=== PATIENT | female | born 1995 | race Hispanic/Latino ===

== ENCOUNTER 2019-04-10 20:12 | Emergency (ER) | payer OTHER ==
--- OUTSIDE RECORDS SUMMARY | 2019-04-10 20:15 | XMS REPORT | Summary of Care ---
:1995 Author Organization [facility] - [facility] Address [address] [place] [address] Care Team Providers Name Role Phone Pcp, Patient Does Not Have A Primary Care Provider Reason for Referral Radiology Services (STAT) Status Reason Specialty Diagnoses / Referred By Referred To Procedures Contact Contact New Request Diagnostic Diagnoses Abdominal cramping affecting Silvia, K Radiology Procedures US FIRST TRIMESTER LESS THAN 14 WEEKS WITH TRANSVAGINAL Merari, PAC [address] [facility] [address] [place] [address] Radiology Services (STAT) Status Reason Specialty Diagnoses / Referred By Referred To Procedures Contact Contact New Request Diagnostic Diagnoses Abdominal cramping affecting Silvia, K Radiology Procedures US FIRST TRIMESTER LESS THAN 14 WEEKS WITH TRANSVAGINAL Merari, PAC [address] [facility] [address] [place] [address] Reason for Visit Reason Comments 7 weeks CRAMPING Auth/Cert Status Reason Specialty Diagnoses / Referred By Referred To Procedures Contact Contact Emergency [facility] [address] [place] [address] [place] [address] Encounter Details Date Type Department Care Team Description 02/10/2019 Emergency [facility]-Emergency Silvia, K Merari, Abdominal cramping Department PAC affecting [address] [place] [address] [address] (Primary Dx) [place] [address] [place] [address] [place] [phone] Allergies No Known Allergiesdocumented as of this encounter (statuses as of 02/10/2019) Medications Medication Sig Dispensed Refills Start Date End Date Status acetaminophen-codeine Take 1 tablet by 20 tablet 0 09/10/2016 Active (TYLENOL-CODEINE #3) mouth every 6 300-30 mg tablet (six) hours as needed for Pain (scale 4-6). acetaminophen-codeine 1/2 - 1 tab Every 15 tablet 0 08/15/2017 Active 300-30 mg 4hrs as needed tabletIndications: for pain or cough Cough requiring narcotic predniSONE 2.5 mg Take 2.5 mg by 0 Active tablet mouth daily. brompheniramine/phenyl Take by mouth. 0 Active ephrine (BROMFED ORAL) oseltamivir phosphate Take by mouth. 0 Active (TAMIFLU ORAL) ibuprofen 600 mg Take 1 tablet by 30 tablet 0 09/01/2018 Active tabletIndications: mouth every 6 Influenza (six) hours as needed for Pain (scale 4-6). benzonatate 100 mg Take 1 capsule by 20 capsule 0 09/01/2018 Active capsuleIndications: mouth 3 (three) Influenza times daily as needed for Cough. ondansetron (ZOFRAN Take 1 tablet by 10 tablet 0 09/01/2018 Active ODT) 4 mg mouth every 8 disintegrating (eight) hours as tabletIndications: needed for Nausea Influenza and Vomiting (N/V). documented as of this encounter (statuses as of 02/10/2019) Active Problems No known active problemsdocumented as of this encounter (statuses as of 2018) Social History Tobacco Use Types Packs/Day Years Used Date Never Smoker Sex Assigned at Date Recorded Not on file Job Start Date Occupation Industry Not on file Not on file Not on file Travel History Travel Start Travel End No recent travel history available. documented as of this encounter Last Filed Vital Signs Vital Sign Reading Time Taken Comments Blood Pressure 108/83 02/10/2019 9:00 PM CDT Pulse 82 02/10/2019 11:00 PM CDT Temperature 37.6 C (99.6 F) 02/10/2019 8:14 PM CDT Respiratory Rate 18 02/10/2019 9:00 PM CDT Oxygen Saturation 99% 02/10/2019 11:00 PM CDT Inhaled Oxygen Concentration - - Weight 88.5 kg (195 lb) 02/10/2019 8:14 PM CDT Height - - Body Mass Index 39.39 09/01/2018 8:14 PM [employer] documented in this encounter Discharge Instructions AttachmentsThe following attachments cannot be sent through Care Everywhere.,Adapting to: First Trimester (French)documented in this encounter Plan of Treatment Health Maintenance Due Date Last Done Comments MENINGOCOCCAL B VACCINES (1 of 2 - 2006 Risk Bexsero 2-dose series) VARICELLA VACCINES (1 of 2 - 13+ 2009 2-dose series) HPV VACCINES (1 - Female 3-dose 11/25/2011 series) CHLAMYDIA SCREENING 2012 DTaP,Tdap,and Td Vaccines (1 - 11/25/2015 Tdap) PAP SMEAR 2017 INFLUENZA VACCINE 03/20/2019 MENINGOCOCCAL VACCINE Aged Out No longer eligible based on patient's age to complete this topic PNEUMOCOCCAL 0-64 YEARS COMBINED Aged Out No longer eligible based on SERIES patient's age to complete this topic documented as of this encounter Procedures Procedure Name Priority Date/Time Associated Comments Diagnosis ABORH CONFIRMATION Routine 02/10/2019 9:50 Results for this PM CDT procedure are in the results section. US FIRST STAT 02/10/2019 9:28 Abdominal cramping Results for this TRIMESTER LESS THAN PM CDT affecting procedure are in 14 WEEKS WITH the results TRANSVAGINAL section. CBC WITH DIFFERENTIAL STAT 02/10/2019 8:45 Abdominal cramping Results for this PM CDT affecting procedure are in the results section. TYPE AND SCREEN STAT 02/10/2019 8:45 Abdominal cramping Results for this PM CDT affecting procedure are in the results section. CBC WITH DIFF Routine 02/10/2019 8:45 Abdominal cramping Results for this PM CDT affecting procedure are in the results section. TOTAL BETA HCG ASSAY STAT 02/10/2019 8:45 Abdominal cramping Results for this PM CDT affecting procedure are in the results section. COMP. METABOLIC PANEL STAT 02/10/2019 8:45 Abdominal cramping Results for this (19438) PM CDT affecting procedure are in the results section. POCT TEST CECE 02/10/2019 8:28 Abdominal cramping Results for this PM CDT affecting procedure are in the results section. URINALYSIS STAT 02/10/2019 8:26 Abdominal cramping Results for this PM CDT affecting procedure are in the results section. NOTICE OF PRIVACY Routine 02/10/2019 8:01 PRACTICES PM CDT documented in this encounter Results ABORH CONFIRMATION (02/10/2019 9:50 PM CDT) ABO & RH A Positive LAB Comment: Performed at [facility] Laboratory Services - ADC Blood Bank [address] [place] [address] Toll Free: [phone] CLIA No. [id number] Specimen Performing Organization Address City/State/Zipcode Phone Number BLD LAB US FIRST TRIMESTER LESS THAN 14 WEEKS WITH TRANSVAGINAL (02/10/2019 9 :28 PM CDT) Specimen Impressions Performed At PACS/VR/DOSE Live intrauterine corresponding to a gestational age of 6 weeks and 0 days. Keven Norman MD., have reviewed this study and agree with the above report. Narrative Performed At TRANSABDOMINAL AND TRANSVAGINAL PELVIC ULTRASOUND: PACS/VR/DOSE CLINICAL HISTORY: Beta HCG : None available at the time of dictation COMPARISON:None. FINDINGS: Transabdominal and transvaginal pelvic ultrasounds were performed. The uterus is normal in size and echotexture and contains a normal gestational sac.A live intrauterine was demonstrated with a crown rump length of 2.3 mm corresponding to a gestational age of 6 weeks and 0 days.Doppler studies demonstrated evidence of heart tones at a rate of 120 bpm.The yolk sac is present measuring 2.4 cm. No significant free fluid is present in the rectouterine pouch. The bilateral ovaries are normal with the right ovary measuring 9.1 cc and the left ovary measuring 2.8 cc. Procedure Note [facility], Radiant Results Inft User - 02/10/2019 9:40 PM CDT TRANSABDOMINAL AND TRANSVAGINAL PELVIC ULTRASOUND: CLINICAL HISTORY: Beta HCG : None available at the time of dictation COMPARISON: None. FINDINGS: Transabdominal and transvaginal pelvic ultrasounds were performed. The uterus is normal in size and echotexture and contains a normal gestational sac. A live intrauterine was demonstrated with a crown rump length of 2.3 mm corresponding to a gestational age of 6 weeks and 0 days. Doppler studies demonstrated evidence of heart tones at a rate of 120 bpm. The yolk sac is present measuring 2.4 cm. No significant free fluid is present in the rectouterine pouch. The bilateral ovaries are normal with the right ovary measuring 9.1 cc and the left ovary measuring 2.8 cc. IMPRESSION Live intrauterine corresponding to a gestational age of 6 weeks and 0 days. I, Joseluis Cano MD., have reviewed this study and agree with the above report. Performing Organization Address City/State/Zipcode Phone Number PACS/VR/DOSE CBC WITH DIFFERENTIAL (02/10/2019 8:45 PM CDT) WBC 8.25 4.30 - 11.10 [facility] 10*3/L [facility] RBC 4.68 3.93 - 5.25 [facility] 10*6/L HOSPITAL LAB[facility]ORY HGB 13.3 11.6 - 15.0 g/dL [facility] HCT 41.0 35.7 - 45.2 % [facility] MCV 87.6 80.6 - 95.5 fL [facility] MCH 28.4 25.9 - 32.8 pg [facility] MCHC 32.4 31.6 - 35.1 g/dL [facility] RDW-SD 40.1 39.0 - 49.9 fL [facility] RDW-CV 12.6 12.0 - 15.5 % [facility] PLT 354 166 - 358 [facility] 10*3/L [facility] MPV 8.8 (L) 9.5 - 12.9 fL [facility] NRBC/100 WBC 0.0 0.0 - 10.0 /100 [facility] WBCs [facility] NRBC x10^3 <0.01 10*3/L [facility] GRAN MAT (NEUT) % 60.7 % [facility] IMM GRAN % 0.40 % [facility] LYMPH % 29.7 % [facility] MONO % 6.7 % [facility] EOS % 1.9 % [facility] BASO % 0.6 % [facility] GRAN MAT x10^3(ANC) 5.01 1.88 - 7.09 [facility] 10*3/uL HOSPITAL LAB[facility]ATORY IMM GRAN x10^3 0.03 0.00 - 0.06 [facility] 10*3/uL HOSPITAL [facility] LYMPH x10^3 2.45 1.32 - 3.29 [facility] 10*3/uL HOSPITAL [facility] MONO x10^3 0.55 0.33 - 0.92 [facility] 10*3/uL [facility] EOS x10^3 0.16 0.03 - 0.39 [facility] 10*3/uL HOSPITAL [facility] BASO x10^3 0.05 0.01 - 0.07 [facility] 10*3/uL HOSPITAL LABORATORY Specimen Blood - VENOUS Performing Organization Address City/[facility] Phone Number [facility] CLIA: [id number], [address] [place] [address] Type and Screen - ONCE STAT (02/10/2019 8:45 PM CDT) ABO & RH A Positive LAB Comment: Performed at [facility] Laboratory [facility] - [facility] Blood Bank [address] [place], [place] [address] Toll Free: [phone] CLIA No. [id number] IAT Negative LAB Comment: Performed at [facility] Laboratory [facility] Blood Bank [address] [place], [place] [address] Toll Free: [phone] CLIA No. [id number] Specimen Blood - VENOUS Performing Organization Address City/[facility] Hospital[facility] Phone Number BLD LAB TOTAL BETA HCG ASSAY (02/10/2019 8:45 PM CDT) Pathologist [facility] BETA HCG 21,325.00 Non- female [facility] and male patients: HOSPITAL LABORATORY <5 mIU/mL Specimen Blood - VENOUS Narrative Performed At Gestational AgeRange [facility] (mIU/mL) 1-10Weeks [id number] 11-15 [id number] 16-22 [id number] 1954 23-40 [id number] 1566 Biotin has been reported to cause a negative bias, interpret results relative to patient's use of biotin. Performing Organization Address City/[facility]/Zipcode Phone Number [facility] CLIA: [id number], [address] [place] [address] COMP. METABOLIC PANEL (74823) (02/10/2019 8:45 PM CDT) NA 141 135 - 145 [facility] mmol/L [facility] K 3.4 (L) 3.5 - 5.0 [facility] mmol/L [facility] CL 105 98 - 108 mmol/L [facility] CO2 TOTAL 24 23 - 31 mmol/L [facility] AGAP 12 2 - 16 [facility] BUN 9 7 - 23 mg/dL [facility] GLUCOSE 142 (H) 70 - 110 mg/dL [facility] CREATININE 0.49 (L) 0.50 - 1.04 [facility] mg/dL [facility] TOTAL BILI 0.2 0.1 - 1.1 mg/dL [facility] CALCIUM 8.9 8.6 - 10.6 [facility] mg/dL [facility] T PROTEIN 7.6 6.3 - 8.2 g/dL [facility] ALBUMIN 4.3 3.5 - 5.0 g/dL [facility] ALK PHOS 81 34 - 122 U/L [facility] ALT(SGPT) 16 9 - 51 U/L [facility] AST(SGOT) 23 13 - 40 U/L [facility] eGFR Calculation 157.9 mL/min/1.73m2 [facility] (Non-[facility] LABORATORY English) eGFR Calculation 191.4 mL/min/1.73m2 [facility] () [facility] Specimen Blood - VENOUS Narrative Performed At Association of Glomerular Filtration Rate (GFR) [facility] and Staging of Kidney Disease* + + +- + | GFR (mL/min/1.73 m2)| With Kidney Damage|Without Kidney Damage + + +- + |>90| Stage one| Normal + + +- + |60-89|S tage two| Decreased GFR + + +- + |30-59|S tage three| Stage three + + +- + |15-29|S tage four | Stage four + + +- + |<15 (or dialysis)|Stage five | Stage five + + +- + *Each stage assumes the associated GFR level has been in effect for at least three months.Stages 1 to 5, with or without kidney disease, indicate chronic kidney disease. Notes: Determination of stages one and two (with eGFR >59mL/min/1.73 m2) requires estimation of kidney damage for at least three months as defined by structural or functional abnormalities of the kidney, manifested by either: Pathological abnormalities or Markers of kidney damage (including abnormalities in the composition of the blood or urine or abnormalities in imaging tests). Performing Organization Address [facility]code Phone Number [facility] CLIA: [id number], [address] [place] [address] POCT TEST (02/10/2019 8:28 PM CDT) POCT PREG positive On board controls acceptable present with C Line POCT PREG LOT # [id number] POCT PREG TEST DATE 07/19/2020 Specimen Urine - URINE, CLEAN CATCH URINALYSIS (02/10/2019 8:26 PM CDT) APPEARANCE Clear Clear [facility] COLOR Yellow Yellow [facility] PH 6.0 4.8 - 8.0 [facility] SP GRAVITY >=1.030 1.003 - 1.030 [facility] GLU U QUAL Negative Negative [facility] BLOOD Trace (A) Negative [facility] KETONES Negative Negative [facility] PROTEIN Negative Negative [facility] UROBILIN 0.2 mg/dL 0-1.0 mg/dL [facility] BILIRUBIN Negative Negative [facility] NITRITE Negative Negative [facility] LEUK JONO Negative Negative [facility] RBC/HPF 1 0 - 3 HPF [facility] WBC/HPF 0 0 - 5 HPF [facility] BACTERIA Negative Negative [facility] MUCOUS Slight (A) Negative LPF [facility] AMORPHOUS 1+ HPF [facility] SQ EPITH 1 HPF [facility] Specimen Urine - URINE, CLEAN CATCH Performing Organization Address [facility]/Zipcode Phone Number [facility] CLIA: [id number], [address] [place] [address] documented in this encounter Visit Diagnoses Diagnosis Abdominal cramping affecting - Primary documented in this encounter Administered Medications Medication Order MAR Action Action Date Dose Rate Site NaCl 0.9% (NS) bolus New Bag 02/10/2019 10:41 PM CDT 1,000 mL 999 mL/hr infusion 1,000 mL at 999 mL/hr, 1,000 mL, IV Infusion, ONCE, 1 dose, Susan 02/10/19 at 2145, STAT documented in this encounter Insurance Payer Benefit Plan / Subscriber ID Effective Dates Phone Address Type Group [employer] MEDICAID OF xxxxxxxxx 2019-Present [phone] [address] Medicaid [place] [id number] [place] [phone] documented as of this encounter"
--- OUTSIDE RECORDS SUMMARY | 2019-04-10 20:15 | XMS REPORT | Summary of Care ---
:1995 Author Organization [facility] - Health Address [address] [place] [address] Care Team Providers Name Role Phone Panda Gore MD Primary Care Provider Unavailable Encounter Details Date Type Department Care Team Description 02/10/2019 Orders Only [facility] Doctor Unassigned, No [address] [facility] [place] [address] [address] [place] [address] Allergies No Known Allergiesdocumented as of this [...] of this encounter Last Filed Vital Signs Not on filedocumented in this encounter Plan of Treatment Health [...] encounter Procedures Procedure Name Priority Date/Time Associated Diagnosis Comments CONSENT/REFUSAL FOR Routine 02/10/2019 8:00 PM CDT DIAGNOSIS AND TREATMENT documented in this encounter Results Not on filedocumented in this encounter Insurance Payer Benefit Plan / Subscriber ID Effective Dates Phone Address Type Group CONTINUUM GENERIC CONTINUUM GENERIC [id number] 2016-Presen Agency t [employer] ALLIED BENEFIT [id number] 2016-Presen PPO t CONTINUUM GENERIC CONTINUUM GENERIC [id number] Effective for Agency all dates documented as of this encounter
--- OUTSIDE RECORDS SUMMARY | 2019-04-10 20:15 | XMS REPORT ---
:1995 [facility] Address [address] [place] [address] Dr. Peres [address] [place] [address] Care Team Providers Name Role Phone Unavailable Unavailable Unavailable Problems This patient has no known problems. Allergies, Adverse Reactions, Alerts This patient has no known allergies or adverse reactions. Medications This patient has no known medications.
--- OUTSIDE RECORDS SUMMARY | 2019-04-10 20:16 | XMS REPORT | Summary of Care ---
:1995 Author Organization [facility] - [address] [address] Care Team Providers Name Role Phone Andreea Red Primary Care Provider Reason for Visit Reason Comments Forms Encounter Details Date Type Department Care Team Description 03/15/2019 Telephone [facility] Women's Sri Britt MD Forms Healthcare- [address], [place] [address] [address] [place] [phone] [phone] Allergies No Known Allergiesdocumented as of this encounter (statuses as of 03/15/2019) Medications Medication Sig Dispensed Refills Start Date End Date Status Take by mouth. 0 Active vits62/FA/om3/dha/epa ( GUMMY ORAL) documented as of this encounter (statuses as of 03/15/2019) Active Problems Problem Noted Date Obesity, Class III, BMI 40-49.9 (morbid obesity) 02/22/2019 Estimated Date of Delivery Comments Yes 10/06/2019 Based on last menstrual period of 12/30/2018 documented as of this encounter (statuses as of 03/15/2019) Social History Tobacco Use Types Packs/Day Years Used Date Never Smoker Smokeless Tobacco: Never Used Alcohol Use Drinks/Week oz/Week Comments Never Alcohol Habits Answer Date Recorded How often do you have a drink containing alcohol? Never 02/22/2019 How many drinks containing alcohol do you have on a typical Not asked day when you are drinking? How often do you have six or more drinks on one occasion? Not asked Estimated Date of Delivery Comments Yes 10/06/2019 Based on last menstrual period of 12/30/2018 Sex Assigned at Date Recorded Not on file Job Start Date Occupation Industry Not on file Not on file Not on file Travel History Travel Start Travel End No recent travel history available. documented as of this encounter Last Filed Vital Signs Not on filedocumented in this encounter Plan of Treatment Date Type Specialty Care Team Description 03/22/2019 Routine Obstetrics & Yarbrough, Danielle Dixon MD Visit Gynecology [address] [place] [address] [address] [place], [place] [phone] Health Maintenance Due Date Last Done Comments MENINGOCOCCAL B VACCINES (1 of 2 - 2006 Risk Bexsero 2-dose series) HPV VACCINES (1 - Female 3-dose 11/25/2011 series) DTaP,Tdap,and Td Vaccines (1 - 11/25/2015 Tdap) INFLUENZA VACCINE (#1) 2019 CHLAMYDIA SCREENING 02/23/2020 02/22/2019 PAP SMEAR 02/22/2022 02/22/2019 MENINGOCOCCAL VACCINE Aged Out No longer eligible based on patient's age to complete this topic PNEUMOCOCCAL 0-64 YEARS COMBINED Aged Out No longer eligible based on SERIES patient's age to complete this topic documented as of this encounter Results Not on filedocumented in this encounter Insurance Payer Benefit Plan / Subscriber ID Effective Phone Address Type Group Dates CONTINUUM CONTINUUM [id number] 2016-Pres Agency GENERIC GENERIC ent [employer] xxxxxxxxx 2019-[place]ga [place] Medicaid HEALTH CHOICE - HEALTH CHOICE nt [id number] MANAGED MEDICAID [place], [place] MEDICA[place] [id number] documented as of this encounter
--- OUTSIDE RECORDS SUMMARY | 2019-04-10 20:16 | XMS REPORT | Summary of Care ---
:1995 Author Organization [facility] Address [address] [place] [address] Care Team Providers Name Role Phone Pcp, Patient Does Not Have A Primary Care Provider Encounter Details Date Type Department Care Team Description 02/22/2019 Orders Only [facility] Doctor Unassigned, No [address] [facility] [place] [address] [address] [place] [address] Allergies No Known Allergiesdocumented as of this encounter (statuses as of 02/22/2019) Medications Medication Sig Dispensed Refills Start Date [...] as of this encounter (statuses as of 02/22/2019) Active Problems No known active problemsdocumented as [...] Procedure Name Priority Date/Time Associated Diagnosis Comments ASSIGNMENT OF BENEFITS Routine 02/22/2019 3:40 PM CDT documented in this encounter Results Not on filedocumented in this encounter Insurance Payer Benefit Plan / Subscriber ID Effective Phone Address Type Group Dates CONTINUUM CONTINUUM [id number] 2016-Pres Agency GENERIC GENERIC ent [facility] MEDICAID OF xxxxxxxxx 2019-Prese [phone] Medicaid [place] nt [id number] [place] [address] documented as of this encounter
--- OUTSIDE RECORDS SUMMARY | 2019-04-10 20:16 | XMS REPORT | Summary of Care ---
:1995 Author Organization [facility] Address [address] [place] [id number] Care Team Providers Name Role Phone Andreea Red Primary Care Provider Reason for Visit Reason Comments LAB WORK Auth/Cert Status Reason Specialty Diagnoses / Referred By Referred To Procedures Contact Contact Clinical Medical Diagnoses regnancy examination or test, positive result [facility] Lab Laboratory Procedures 1 hour glucose [address] [place] [address] Encounter Details Date Type Department Care Team Description 03/03/2019 Side Gluer Visit [facility] Yarbrough, Danielle Dixon MD [address] [place] [address] Phlebotomy 1, [facility] Lab examination or test, [facility] positive result [address] [place] [address] Allergies No Known Allergiesdocumented as of this encounter (statuses as of 03/03/2019) Medications Medication Sig Dispensed Refills Start Date End Date Status Take by mouth. 0 Active vits62/FA/om3/dha/epa ( GUMMY ORAL) documented as of this encounter (statuses as of 03/03/2019) Active Problems Problem Noted Date Obesity, Class III, BMI 40-49.9 (morbid obesity) 02/22/2019 Estimated Date of Delivery Comments Yes 10/06/2019 Based on last menstrual period of 12/30/2018 documented as of this encounter (statuses as of 03/03/2019) Social History Tobacco Use Types Packs/Day Years [...] & Yarbrough, Danielle Dixon MD Visit Gynecology [address] [place] [address] [place] [address] [phone] Name Type Priority Associated Diagnoses Date/Time GLUCOSE 1 HOUR POST LAB Routine examination or 03/03/2019 4:39 PM PRANDIAL test, positive result CDT ADC, CLC OR LCC ONLY - LAB Routine examination or 03/03/2019 4: 39 PM HIV TYPE 1 AND 2 ANTIBODY test, positive result CDT SCREEN WITH P24 ADC OR JADEN ONLY - RPR LAB Routine examination or 03/03/2019 4:39 PM test, positive result CDT CBC WITH DIFF LAB Routine examination or 03/03/2019 4:39 PM test, positive result CDT HEPATITIS B SURFACE LAB Routine examination or 03/03/2019 4:39 PM ANTIGEN test, positive result CDT HCV ANTIBODY LAB Routine examination or 03/03/2019 4:39 PM test, positive result CDT RUBELLA SCREEN IGG LAB Routine examination or 03/03/2019 4:39 PM test, positive result CDT URINE CULTURE LAB Routine examination or 03/03/2019 4:39 PM test, positive result CDT VZV ANTIBODY SCREEN LAB Routine examination or 03/03/2019 4:39 PM test, positive result CDT CBC WITH DIFFERENTIAL LAB Routine examination or 03/03/2019 4: 39 PM test, positive result CDT Health Maintenance Due Date Last Done Comments [...] Results Not on filedocumented in this encounter Visit Diagnoses Diagnosis examination or test, positive result documented in this encounter Insurance Payer Benefit Plan / Subscriber ID Effective Dates Phone Address Type Group TMHP MEDICAID OF xxxxxxxxx 2019-Present [phone] [address] [place] [id number] [place] [phone] documented as of this encounter
--- OUTSIDE RECORDS SUMMARY | 2019-04-10 20:16 | XMS REPORT | Summary of Care ---
:1995 Author Organization [facility] - [address] [address] Care Team Providers Name Role Phone Andreea Red Primary Care Provider Encounter Details Date Type Department Care Team Description 03/15/2019 Letter (Out) [facility] Women's Sri Britt MD [facility]- [address], [place] [address] [address] [place] [id number] [phone] Allergies No Known Allergiesdocumented as of this [...] & Yarbrough, Danielle Dixon MD Visit Gynecology [address] [place] [address] [place] [address] Health Maintenance Due Date Last Done Comments [...] Phone Address Type Group Dates CONTINUUM CONTINUUM [id number] 2016-Pres Agency GENERIC GENERIC ent COMMUNITY COMMUNITY xxxxxxxxx 2019-Nga [address] Medicaid HEALTH CHOICE - HEALTH CHOICE [id number] MANAGED MEDICAID [place], [place] MEDICAID [id number] documented as of this encounter
--- OUTSIDE RECORDS SUMMARY | 2019-04-10 20:16 | XMS REPORT | Summary of Care ---
:1995 Author Organization [facility] Address [address] [place] [address] Care Team Providers Name Role Phone Andreea Red Primary Care Provider Encounter Details Date Type Department Care Team Description 03/11/2019 Letter (Out) [facility] Women's Yarbrough, Danielle Dixon MD [facility]- [address] [facility], [address] [place] [address] [place] [id number] Allergies No Known Allergiesdocumented as of this encounter (statuses as of 03/11/2019) Medications Medication Sig Dispensed Refills Start Date End Date Status Take by mouth. 0 Active vits62/FA/om3/dha/epa ( GUMMY ORAL) documented as of this encounter (statuses as of 03/11/2019) Active Problems Problem Noted Date Obesity, Class III, BMI 40-49.9 (morbid obesity) 02/22/2019 Estimated Date of Delivery Comments Yes 10/06/2019 Based on last menstrual period of 12/30/2018 documented as of this encounter (statuses as of 03/11/2019) Social History Tobacco Use Types Packs/Day Years [...] & Yarbrough, Danielle Dixon MD Visit Gynecology [address] [place] [address] [place] [address] Health Maintenance Due Date Last [...] Phone Address Type Group Dates CONTINUUM CONTINUUM [id number] 2016-Pres Agency GENERIC GENERIC ent COMMUNITY COMMUNITY xxxxxxxxx 2019-Nga [address] [place] Medicaid HEALTH CHOICE - HEALTH CHOICE [id number] MANAGED MEDICAID [place], [place] [phone] documented as of this encounter
--- OUTSIDE RECORDS SUMMARY | 2019-04-10 20:16 | XMS REPORT | Summary of Care ---
:1995 Author Organization [facility] Address [address] [place] [address] Care Team Providers Name Role Phone Pcp, Patient Does Not Have A Primary Care Provider Reason for Visit Reason Comments POSITIVE HOME TEST MISSED MENSES Encounter Details Date Type Department Care Team Description 02/22/2019 Initial [facility] Women's Yarbrough, Danielle Dixon MD High-risk in first trimester (Primary Dx); Visit Healthcare- [address] [place] [address] examination or test, positive result; Zoë BORGES Vaginal discharge; [address] [place] [address], [address] Pelvic cramping in antepartum period; [address] [place], [place] 7 weeks gestation of ; [place] [address] Obesity, Class III, BMI 40-49.9 (morbid obesity) [id number] Allergies No Known Allergiesdocumented as of this encounter (statuses as of 02/22/2019) Medications Medication Sig Dispensed Refills Start Date End Date Status Take by 0 Active vits62/FA/om3/dha/ep mouth. a ( GUMMY ORAL) acetaminophen-codein Take 1 tablet 20 tablet 0 09/10/2016 Discontinued e (TYLENOL-CODEINE by mouth every 9 #3) 300-30 mg tablet 6 (six) hours as needed for Pain (scale 4-6). acetaminophen-codein 1/2 - 1 tab 15 tablet 0 08/15/2017 Discontinued e 300-30 mg Every 4hrs as 9 tabletIndications: needed for Cough pain or cough requiring narcotic predniSONE 2.5 mg Take 2.5 mg by 0 Discontinued tablet mouth daily. 9 brompheniramine/phen Take by 0 Discontinued ylephrine (BROMFED mouth. 9 ORAL) oseltamivir Take by 0 Discontinued phosphate (TAMIFLU mouth. 9 ORAL) ibuprofen 600 mg Take 1 tablet 30 tablet 0 09/01/2018 Discontinued tabletIndications: by mouth every 9 Influenza 6 (six) hours as needed for Pain (scale 4-6). benzonatate 100 mg Take 1 capsule 20 capsule 0 09/01/2018 Discontinued capsuleIndications: by mouth 3 9 Influenza (three) times daily as needed for Cough. ondansetron (ZOFRAN Take 1 tablet 10 tablet 0 09/01/2018 Discontinued ODT) 4 mg by mouth every 9 disintegrating 8 (eight) tabletIndications: hours as Influenza needed for Nausea and Vomiting (N/V). documented as of this encounter (statuses as of 02/22/2019) Active Problems Problem Noted Date Obesity, Class III, BMI 40-49.9 (morbid obesity) 02/22/2019 Estimated Date of Delivery Comments Yes 10/06/2019 Based on last menstrual period of 12/30/2018 documented as of this encounter (statuses as of 02/22/2019) Social History Tobacco Use Types Packs/Day Years [...] Sign Reading Time Taken Comments Blood Pressure 117/80 02/22/2019 4:26 PM CDT Pulse 86 02/22/2019 4:26 PM CDT Temperature 37 C (98.6 F) 02/22/2019 4:26 PM CDT Respiratory Rate 20 02/22/2019 4:26 PM CDT Oxygen Saturation - - Inhaled Oxygen Concentration - - Weight 90.7 kg (200 lb) 02/22/2019 4:26 PM CDT Height 149.9 cm (4' 11") 02/22/2019 4:26 PM CDT Body Mass Index 40.4 02/22/2019 4:26 PM CDT documented in this encounter Progress Notes Danielle Yarbrough MD - 02/22/2019 3:30 PM CDT Chief complaint: Chief Complaint Patient presents with POSITIVE HOME TEST MISSED MENSES HPI Trixie Swann is a 23 year old female @ 7w5d by Patient's last menstrual period was 12/30/2018. here for NOB visit. Unplanned but is happy. Taking PNV. + midline intermittent pelvic cramping. Denies vaginal bleeding or spotting. Histories OB History Para Term AB Living 1 SAB TAB Ectopic Multiple Live Births # Outcome Date GA Lbr Josh/2nd Weight Sex Delivery Anes PTL Lv 1 Current Past Medical History: Diagnosis Date Acid reflux Anemia Anxiety Asthma Bacterial vaginosis History of Depression GERD (gastroesophageal reflux disease) Family History Problem Relation Age of Onset Diabetes Mother Ovarian Cancer Other 33 Arthritis NoFHx Asthma NoFHx defects NoFHx Breast Cancer NoFHx Colon Cancer NoFHx Uterine Cancer NoFHx Cancer NoFHx Depression NoFHx Genetic NoFHx Heart NoFHx High cholesterol NoFHx Hypertension NoFHx Mental retardation NoFHx Neurological NoFHx Osteoporosis NoFHx Other - see comments NoFHx Family Status Relation Name Status Mo Alive Fa Alive OTHER 1st Cousin NoFHx (Not Specified) Past Surgical History: Procedure Laterality Date MYRINGOTOMY at age 4 Social History Socioeconomic History Marital status: Single Spouse name: Not on file Number of children: Not on file Years of education: Not on file Highest education level: Not on file 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 Social Needs Financial resource strain: Not on file Food insecurity: Worry: Not on file Inability: Not on file Transportation needs: Medical: Not on file Non-medical: Not on file Tobacco Use Smoking status: Never Smoker Smokeless tobacco: Never Used Substance and Sexual Activity Alcohol use: Never Frequency: Never Drug use: Never Sexual activity: Yes Partners: Male control/protection: None Lifestyle Physical activity: Days per week: Not on file Minutes per session: Not on file Stress: Not on file Relationships Social connections: Talks on phone: Not on file Gets together: Not on file Attends church service: Not on file Active member of club or organization: Not on file Attends meetings of clubs or organizations: Not on file Relationship status: Not on file Intimate partner violence: Fear of current or ex partner: Not on file Emotionally abused: Not on file Physically abused: Not on file Forced sexual activity: Not on file Other Topics Concern Not on file Social History Narrative Denies domestic or physical violence within the home Catholic Preference: Jainism No Cats in home Social History Substance and Sexual Activity Sexual Activity Yes Partners: Male control/protection: None Genetic Screen Autism / Mental Retardation: (!) Yes(MOB has three maternal aunts that all have children with MR) Was person tested for Fragile X?: No Wilberto Disease: No Congenital Heart Defect: No Cystic Fibrosis: No Down Syndrome: No Familial Dysautonomia: No Hemophilia or other Blood Disorders: No [place] Chorea: No Maternal Metabolic Disorder--specify (eg. Type 1 Diabetes, PKU): No Muscular Dystrophy: No Neural Tube Defect: No Recurrent Loss or a Stillbirth: No Sickle Cell Disease or Trait: No Michael Sachs: No Teratological Substances (specify type & strength/dose) since LMP: No Thalassemia: No Other Inherited Genetic or Chromosomal Disorder (specify): No Labs No new labs Radiology No new radiology. Allergies Trixie has No Known Allergies. Medications Trixie has a current medication list which includes the following prescription(s ): vits62/fa/om3/dha/epa. Review of Systems Constitutional: Negative for chills, fatigue and fever. HENT: Negative for congestion, rhinorrhea, sneezing and sore throat. Respiratory: Negative for cough, chest tightness, shortness of breath and wheezing. Breasts: Negative for discharge, mass, pain and unequal size. Cardiovascular: Negative for chest pain and palpitations. Gastrointestinal: Negative for abdominal distention, abdominal pain, anal bleeding, blood in stool, constipation, diarrhea, nausea and vomiting. Genitourinary: Negative for bladder incontinence, dysuria, urgency, frequency, vaginal bleeding, vaginal discharge and dyspareunia. Musculoskeletal: Negative for gait problem. Skin: Negative for rash. Neurological: Negative for syncope, light-headedness and headaches. Psychiatric/Behavioral: Positive for dysphoric mood. Negative for self-injury and suicidal ideas. The patient is nervous/anxious. Followed by psych, stable Hematological: Negative for cold intolerance and heat intolerance. Does not bruise/bleed easily. Endocrine: Negative for cold intolerance and heat intolerance. BP 117/80 (BP Location: Left arm, Patient Position: Sitting, BP CUFF SIZE: Adult Medium) | Pulse 86 | Temp 37 C (98.6 F) (Oral) | Resp 20 | Ht 4' 11 " (1.499 m) | Wt 200 lb (90.7 kg) | LMP 12/30/2018 | BMI 40.40 kg/m Pregravid BMI: 40.4 Physical Exam Vitals reviewed. Constitutional: She is oriented to person, place, and time. Her body habitus is obese. Neck: No mass. No thyromegaly palpated. Cardiovascular: Regular rate and rhythm. Pulmonary/Chest: Breath sounds clear to auscultation. Normal inspiratory effort. Abdominal: Abdomen is soft. No tenderness present. No hernia palpated or inspected. Neuro/Psychiatric: She has a normal mood and affect. She is oriented to person, place, and time. Skin: Skin normal. No rash present. Lymphadenopathy: No axillary adenopathy present. No inguinal adenopathy present. Breast: Right breast exhibits no mass, no nipple discharge and no tenderness. Left breast exhibits no mass, no nipple discharge and no tenderness. Breasts are symmetrical. Left nipple is flushed against the areolar; this is her baseline External genitalia: Normal external genitalia appropriate for age. Normal hair distribution. No labial lesion. Urethral meatus: Normal urethral meatus Urethra: Normal urethra. Bladder: Normal bladder Vagina:Normal vagina. Cervix: Normal cervix. No lesion. No tenderness and no discharge present. Uterus: Unable to appreciate due to body habitus Adnexa: Unable to appreciate due to body habitus Anus/perineum: Normal perineum and normal anus. Assessment/Plan See OB Summary Return to clinic in 4 weeks. Reviewed patient instructions and provided printed copy. Activity restrictions: As tolerated at 7w5d This visit did not involve counseling and coordination that comprised more than 50% of the visit time. Danielle Yarbrough MD 02/22/2019 5:23 PM documented in this encounter Plan of Treatment Date Type Specialty Care Team Description 03/22/2019 Routine Obstetrics & Danielle Yarbrough MD Visit Gynecology [address] [place] [address] [place] [address] [phone] Name Type Priority Associated Diagnoses Order Schedule GLUCOSE 1 HOUR POST LAB Routine examination or Expected: 2018, PRANDIAL test, positive result Expires: 03/25/2019 ADC / LCC - DRUG SCREEN LAB Routine examination or Ordered: 02/22 TRIAGE test, positive result ADC, CLC OR LCC ONLY - LAB Routine examination or Expected: 02/22, HIV TYPE 1 AND 2 test, positive result Expires: 05/25/2019 ANTIBODY SCREEN WITH P24 ADC OR JADEN ONLY - LAB Routine examination or Expected: 2018, RPR test, positive result Expires: 05/25/2019 CBC WITH DIFF LAB Routine examination or Expected: 02/22/2019, test, positive result Expires: 05/25/2019 HEPATITIS B SURFACE LAB Routine examination or Expected: 2018, ANTIGEN test, positive result Expires: 05/25/2019 HCV ANTIBODY LAB Routine examination or Expected: 02/22/2019, test, positive result Expires: 05/25/2019 WORKUP, BLOOD LAB Routine examination or Expected: 02/22, BANK test, positive result Expires: 05/25/2019 RUBELLA SCREEN IGG LAB Routine examination or Expected: 2018, test, positive result Expires: 05/25/2019 URINE CULTURE LAB Routine examination or Expected: 02/22/2019, test, positive result Expires: 03/25/2019 VZV ANTIBODY SCREEN LAB Routine examination or Expected: 2018, test, positive result Expires: 05/25/2019 PAP Smear-Liquid Based LAB Routine examination or Ordered: 2018 test, positive result GALV ONLY - VAGINAL LAB Routine examination or Ordered: 2018 PATHOGENS BY DNA PROBE test, positive result GC & CHLAMYDIA AMPLIFIED LAB Routine examination or Ordered: 12/2018 ASSAY test, positive result Health Maintenance Due Date Last Done Comments [...] Procedure Name Priority Date/Time Associated Diagnosis Comments US OB TRANSVAGINAL Routine 02/22/2019 5:14 PM Results for this CDT examination or test, procedure are in positive result the results Pelvic cramping in section. antepartum period documented in this encounter Results US OB TRANSVAGINAL (02/22/2019 5:14 PM CDT) Specimen Narrative Performed At Limited [facility]G for location and viability due to pelvic cramping in PACS early :Single live IUP measured 7 2/7 weeks, consistent with LMP.Will date by LMP Danielle Yarbrough MD02/22/20195:15 PM Performing Organization Address City/State/Zipcode Phone Number PACS documented in this encounter Visit Diagnoses Diagnosis High-risk in first trimester - Primary examination or test, positive result Vaginal discharge Leukorrhea, not specified as infective Pelvic cramping in antepartum period Other specified complication, antepartum 7 weeks gestation of Obesity, Class III, BMI 40-49.9 (morbid obesity) Morbid obesity documented in this encounter Insurance Payer Benefit Plan / Subscriber ID Effective Dates Phone Address Type Group TMHP MEDICAID OF xxxxxxxxx 2019-Present [phone] [address] Medicaid [place] [address] [place] [address] documented as of this encounter
--- OUTSIDE RECORDS SUMMARY | 2019-04-10 20:16 | XMS REPORT | Summary of Care ---
:1995 Author Organization [facility] Address [address] [place] [address] Care Team Providers Name Role Phone Pcp, Patient Does Not Have A Primary Care Provider Reason for Visit Reason Comments POSITIVE HOME TEST MISSED MENSES Encounter Details Date Type Department Care Team Description 02/22/2019 Initial [facility] Women[facility] Yarbrough, Danielle Dixon MD High-risk in first trimester (Primary Dx); Visit Healthcare- [address] [place] [address] examination or test, positive result; Zoë BROGES Vaginal discharge; [address], [address] Pelvic cramping in antepartum period; [address] [place], [place] 7 weeks gestation of ; [place] [address] Obesity, Class III, BMI 40-49.9 (morbid obesity) [id number] Allergies No Known Allergiesdocumented as of this encounter (statuses as of 03/04/2019) Medications Medication Sig Dispensed Refills Start Date [...] as of this encounter (statuses as of 03/04/2019) Active Problems Problem Noted Date Obesity, Class III, BMI 40-49.9 (morbid obesity) 02/22/2019 Estimated Date of Delivery Comments Yes 10/06/2019 Based on last menstrual period of 12/30/2018 documented as of this encounter (statuses as of 03/04/2019) Social History Tobacco Use Types Packs/Day Years [...] file Gets together: Not on file Attends scientologist service: Not on file Active member of [...] domestic or physical violence within the home Spiritism Preference: Sikhism No Cats in home Social History Substance [...] No Hemophilia or other Blood Disorders: No [place] Chorea: No Maternal Metabolic Disorder--specify (eg. Type [...] Obstetrics & Danielle Yarbrough MD Visit Gynecology [address] [place] [address] [address] [facility] [place] [address] [phone] Health Maintenance Due Date Last Done Comments [...] Comments US OB TRANSVAGINAL Routine 02/22/2019 5:14 Results for this PM CDT examination or test, procedure are in positive result the results Pelvic cramping in section. antepartum period PAP SMEAR-LIQUID Routine 02/22/2019 5:08 Results for this BASED-CP PM CDT examination or test, procedure are in positive result the results section. ADC / LCC - DRUG Routine 02/22/2019 5:08 Results for this SCREEN TRIAGE PM CDT examination or test, procedure are in positive result the results section. GALV ONLY - VAGINAL Routine 02/22/2019 5:08 Results for this PATHOGENS BY DNA PM CDT examination or test, procedure are in PROBE positive result the results section. LAB ONLY PAP Routine 02/22/2019 5:08 Results for this SMEAR-LIQUID BASED PM CDT examination or test, procedure are in positive result the results section. GC & CHLAMYDIA Routine 02/22/2019 5:08 Results for this AMPLIFIED ASSAY PM CDT examination or test, procedure are in positive result the results section. documented in this encounter Results VZV ANTIBODY SCREEN (03/03/2019 4:39 PM CDT) VZV IgG antibody Positive Negative [facility] Specimen Blood Narrative Performed At Positive - Indicates the patient was exposed to VZV through [facility] infection or vaccination. Negative - Indicates the patient could be susceptible to VZV infection. Equivocal - A second specimen should be sent for testing. Performing Organization Address City/[facility] Phone Number [facility] CLIA: [id number], [address] [place] [address] [facility] URINE CULTURE (03/03/2019 4:39 PM CDT) Pathologist [facility] URINE CULTURE 10,000 - 100,000 [facility] CFU/mL mixed aerobic SERVICES organisms - suggests endogenous microbial contamination Specimen Urine - URINE, CLEAN CATCH Performing Organization Address [facility] Number [facility] CLIA: [id number], [address] [place] [address] [facility] RUBELLA SCREEN IGG (03/03/2019 4:39 PM CDT) Pathologist [facility] Rubella screen IgG Positive Negative [facility] Specimen Blood Narrative Performed At Positive - Indicates the patient was exposed to Rubella [facility] through infection or vaccination. Negative - Indicates the patient could be susceptible to Rubella infection. Equivocal - A second specimen should be sent. Performing Organization Address [facility] Phone Number [facility] CLIA: [id number], [address] [place] [address] [facility] HCV ANTIBODY (03/03/2019 4:39 PM CDT) Pathologist [facility] HCV Ab NEGATIVE [facility] HCV Semi-Quantitative 0.01 [facility] Specimen Blood Performing Organization Address [facility] Phone Number [facility] CLIA: [id number], [address] [place] [address] [phone] [facility] HEPATITIS B SURFACE ANTIGEN (03/03/2019 4:39 PM CDT) Pathologist [facility] HBsAg HEPATITIS B Negative [facility] SURFACE ANTIGEN SERVICES NEGATIVE HBsAg 0.05 [facility] Semi-Quantitative SERVICES Specimen Blood Performing Organization Address [facility] Phone Number [facility] CLIA: [id number], [address] [place] [address] [facility] ADC OR JADEN ONLY - RPR (03/03/2019 4:39 PM CDT) RPR (Qualitative) NON-REACTIVE Nonreactive [facility] Specimen Blood Performing Organization Address City/[facility]/Zipcode Phone Number [facility] CLIA: [id number], [address] [place] [address] LABORATORY [facility] ADC, CLC OR LCC ONLY - HIV TYPE 1 AND 2 ANTIBODY SCREEN WITH P24 (03/03/2019 4: 39 PM CDT) HIV 1/2 AG/AB NON-REACTIVE Nonreactive [facility] Specimen Blood Performing Organization Address [facility] Phone Number [facility] CLIA: [id number], [address] [place] [address] LABORATORY [facility] GLUCOSE 1 HOUR POST PRANDIAL (03/03/2019 4:39 PM CDT) GLUC 1 HR 85 (L) 120 - 170 mg/dL [facility] Specimen Blood Performing Organization Address [facility] Phone Number [facility] CLIA: [id number], [address] [place] [address] LABORATORY [facility] WORKUP, BLOOD BANK (03/03/2019 4:35 PM CDT) ABO & RH A Positive LAB Comment: Performed at [facility] Laboratory [facility] Blood Bank [address] [place] [phone] Toll Free: [phone] CLIA No. [id number] IAT Negative LAB Comment: Performed at [facility] Laboratory [facility] Blood Bank [address] [place] [phone] Toll Free: [phone] CLIA No. [id number] Specimen Blood - VENOUS Performing Organization Address City/[facility] Phone Number [facility] LAB US OB TRANSVAGINAL (02/22/2019 5:14 PM CDT) Specimen Narrative Performed At Limited USG for location and viability due to pelvic cramping in PACS early :Single live IUP measured 7 2/7 weeks, consistent with LMP.Will date by LMP Danielle Yarbrough MD02/22/20195:15 PM Performing Organization Address City/State/Zipcode Phone Number PACS LAB ONLY PAP SMEAR-LIQUID BASED (02/22/2019 5:08 PM CDT) Case Report Gynecologic Cytology Case: [id number] [facility] Authorizing Provider:Danielle Yarbrough MDCollected: 02/22/2019 1708 SERVICES [facility] Women'sReceived: 02/23/[address] [place] [address] First Screen:Theo Galvez Specimen:Liquid Based Pap Preparation, CERVIX Clinical Information First pap [facility] Specimen Adequacy Satisfactory for [facility] LAB[facility]AT[facility] Evaluation(Endocervic SERVICES al/Transformation Zone Component Absent) Interpretation Negative for [facility] Electronically intraepithelial SERVICES signed by rodriguez Galvez or malignancy Theo Galeana on 02/28/2019 at 2:06 PM LMP [facility] Educational Note Cervical cytology [facility] (Pap Test) is a SERVICES screening test primarily for squamous cancers and precursors. The test has an inherent, but low, probability of false-negative and false-positive results. Regular sampling and follow-up of unexplained clinical signs and symptoms are recommended to minimize the effect of false negative results. Your patient should be reminded to consult you immediately if she experiences any unexplained clinical signs and symptoms, regardless of any Pap Test result. Embedded Images [facility] Specimen Swab - CERVIX Performing Organization Address City/[facility]/Zipcode Phone Number [facility] CLIA: [id number], [address] [place] [address] [phone] [facility] GC & CHLAMYDIA AMPLIFIED ASSAY (02/22/2019 5:08 PM CDT) C. trachomatis CHLAMYDIA Negative [facility] Nucleic Acid TRACHOMATIS DNA (A) SERVICES N. gonorrhoeae NEGATIVE Negative [facility] Nucleic Acid SERVICES Specimen Urine - URINE, UNSPECIFIED SOURCE Performing Organization Address City/State/Zipcode Phone Number [facility] CLIA: [id number], [address] [place] [address] [facility] GALV ONLY - VAGINAL PATHOGENS BY DNA PROBE (02/22/2019 5:08 PM CDT) Trichomonas vaginalis Negative Negative [facility] Gardnerella vaginalis Negative Negative [facility] Kalyn species Negative Negative [facility] Specimen Fluid - VAGINA Performing Organization Address City/[facility]/Zipcode Phone Number [facility] CLIA: [id number], [address] [place] [address] [phone] [facility] PAP Smear-Liquid Based (02/22/2019 5:08 PM CDT) Specimen Swab - CERVIX Performing Organization Address [facility] Phone Number [facility] CLIA: [id number], [address] [place] [phone] [facility] ADC / LCC - DRUG SCREEN TRIAGE (02/22/2019 5:08 PM CDT) BENZO U Negative Negative [facility] AGNIESZKA U Negative Negative [facility] AMPHET Negative Negative [facility] THC Negative Negative [facility] METHADONE Negative Negative [facility] Meth U Negative Negative [facility] OPIATES Negative Negative [facility] Cocaine Metabolite Negative Negative [facility] PROPOXY Negative Negative [facility] Tric U Negative Negative [facility] PCP Negative Negative [facility] OXYCOD Negative Negative [facility] Specimen Urine - URINE, CLEAN CATCH Narrative Performed At Urine Drug Cutoff Ranges [facility] Benzodiazepines: 150 ng/mL Barbiturates: 200 ng/mL Amphetamine: 500 ng/mL Cannabinoids: 50ng/mL Methadone: 200 ng/mL Methamphetamine: 500 ng/mL Opiates: 100 ng/mL or 2000 ng/mL Cocaine: 150 ng/mL Propoxyphene:300 ng/mL Tricyclics:300 ng/mL Oxycodone: 100 ng/mL PCP: 25ng/mL The results are to be used only for medical (i.e., treatment) purposes. Unconfirmed screening results must not be used for non-medical purposes (e.g., employment testing, legal testing). Performing Organization Address [facility] Phone Number [facility] CLIA: [id number], [address] [place] [address] documented in this encounter [...] Type Group TMHP MEDICAID OF xxxxxxxxx 2019-Present [phone] Medicaid [place] [id number] [place] [phone] documented as of this encounter
--- OUTSIDE RECORDS SUMMARY | 2019-04-10 20:16 | XMS REPORT | Summary of Care ---
:1995 Author Organization [address] [address] Care Team Providers Name Role Phone Andreea Red Primary Care Provider Reason for Visit Reason Comments Medication Problem One time partner treatment prescription Encounter Details Date Type Department Care Team Description 03/11/2019 Nurse Triage [facility] Grisel Sullivan RN Medication Problem [address] [place] [address] (One time partner [place] [address] prescription) [id number] Allergies No Known Allergiesdocumented as of this [...] & Yarbrough, Danielle Dixon MD Visit Gynecology [address] [place] [address] [place] [address] [phone] Health Maintenance Due Date Last Done Comments [...] Phone Address Type Group Dates CONTINUUM CONTINUUM [id number] 2016-Pres Agency GENERIC GENERIC ent COMMUNITY COMMUNITY xxxxxxxxx 2019-Nga [address] Medicaid HEALTH CHOICE - HEALTH CHOICE nt [id number] MANAGED MEDICAID [place], [place] MEDICAID [id number] documented as of this encounter
--- OUTSIDE RECORDS SUMMARY | 2019-04-10 20:16 | XMS REPORT | Summary of Care ---
:1995 Author Organization [facility] Address [address] [place] [address] Care Team Providers Name Role Phone Pcp, Patient Does Not Have A Primary Care Provider Reason for Visit Reason Comments New Medication Encounter Details Date Type Department Care Team Description 02/23/2019 Case Management [facility] Women's Cathie Roberts, New Medication Healthcare- [facility] [address] [facility], [address] [place] [address] [place] [address] [place] [address] [phone] Allergies No Known Allergiesdocumented as of this encounter (statuses as of 02/23/2019) Medications Medication Sig Dispensed Refills Start Date End Date Status Take by mouth. 0 Active vits62/FA/om3/dha/epa ( GUMMY ORAL) azithromycin 500 mg Take 2 tablets 2 tablet 0 02/23/2019 02/23/2019 Active tabletIndications: by mouth once Chlamydia trachomatis now for 1 dose. infection of lower genitourinary sites documented as of this encounter (statuses as of 02/23/2019) Active Problems Problem Noted Date Obesity, Class III, BMI 40-49.9 (morbid obesity) 02/22/2019 Estimated Date of Delivery Comments Yes 10/06/2019 Based on last menstrual period of 12/30/2018 documented as of this encounter (statuses as of 02/23/2019) Social History Tobacco Use Types Packs/Day Years [...] & Yarbrough, Danielle Dixon MD Visit Gynecology [address] [place] [address] [address] [place], [place] [address] Health Maintenance Due Date Last Done Comments [...] filedocumented in this encounter Visit Diagnoses Diagnosis Chlamydia trachomatis infection of lower genitourinary sites - Primary documented in this encounter Insurance Payer Benefit Plan / Subscriber ID Effective Phone Address Type Group Dates CONTINUUM CONTINUUM [id number] 2016-Pres Agency GENERIC GENERIC ent [facility] MEDICAID OF xxxxxxxxx 2019-Nga [phone] Medicaid [place] [id number] [place] [address] documented as of this encounter
--- OUTSIDE RECORDS SUMMARY | 2019-04-10 20:17 | XMS REPORT | Summary of Care ---
:1995 Author Organization [facility] Address [address] [place] [address] Care Team Providers Name Role Phone Andreea Red Primary Care Provider Reason for Visit Reason Comments Lab Results Encounter Details Date Type Department Care Team Description 03/31/2019 Case Management [facility] Women's Yarbrough, Danielle Dixon MD Lab Results Healthcare- [address] [facility] [address] [place] [address] [place] [address] [phone] Allergies No Known Allergiesdocumented as of this encounter (statuses as of 03/31/2019) Medications Medication Sig Dispensed Refills Start Date End Date Status Take by mouth. 0 Active vits62/FA/om3/dha/epa ( GUMMY ORAL) venlafaxine XR 150 mg TK ONE C PO D 0 02/16/2019 Active 24 hr capsule metoclopramide HCl 10 1 tab every 4hr 30 tablet 0 03/26/2019 Active mg tabletIndications: as needed for Vomiting of nausea acetaminophen-codeine 1/2 - 1 tab Every 10 tablet 0 03/26/2019 Active 300-30 mg 4hrs as needed tabletIndications: for pain or cough Carotidynia requiring narcotic documented as of this encounter (statuses as of 03/31/2019) Active Problems Problem Noted Date Obesity, Class III, BMI 40-49.9 (morbid obesity) 02/22/2019 Estimated Date of Delivery Comments Yes 10/06/2019 Based on last menstrual period of 12/30/2018 documented as of this encounter (statuses as of 03/31/2019) Social History Tobacco Use Types Packs/Day Years [...] Treatment Date Type Specialty Care Team Description 04/21/2019 Routine Obstetrics & Yarbrough, Danielle Dixon MD Visit Gynecology [address] [place] [address] [place] [address] Health Maintenance Due Date Last [...] Phone Address Type Group Dates CONTINUUM CONTINUUM [id number] 2016-Pres Agency GENERIC GENERIC ent COMMUNITY COMMUNITY xxxxxxxxx 2019-Prese [address] Medicaid HEALTH CHOICE - HEALTH CHOICE nt [id number] MANAGED MEDICAID [place], [place] MEDICAID [phone] documented as of this encounter
--- OUTSIDE RECORDS SUMMARY | 2019-04-10 20:17 | XMS REPORT | Summary of Care ---
:1995 Author Organization [facility] Address [address] [place] [id number] Care Team Providers Name Role Phone Andreea Red Primary Care Provider Reason for Visit Reason Comments ROUTINE VISIT Encounter Details Date Type Department Care Team Description 03/22/2019 Routine [facility] Women's Yarbrough, Danielle Dixon MD High-risk in first trimester (Primary Dx); Visit Healthcare- [address] [place] [address] 11 weeks gestation of ; Zoë BORGES Moderate persistent asthma, unspecified whether complicated [address] [place] [address] [address] [place] [address] [phone] Allergies No Known Allergiesdocumented as of this encounter (statuses as of 03/23/2019) Medications Medication Sig Dispensed Refills Start Date End Date Status Take by mouth. 0 Active vits62/FA/om3/dha/epa ( GUMMY ORAL) venlafaxine XR 150 mg 24 TK ONE C PO D 0 02/16/2019 Active hr capsule documented as of this encounter (statuses as of 03/23/2019) Active Problems Problem Noted Date Obesity, Class III, BMI 40-49.9 (morbid obesity) 02/22/2019 Estimated Date of Delivery Comments Yes 10/06/2019 Based on last menstrual period of 12/30/2018 documented as of this encounter (statuses as of 03/23/2019) Social History Tobacco Use Types Packs/Day Years [...] Sign Reading Time Taken Comments Blood Pressure 131/88 03/22/2019 3:24 PM CDT Pulse 111 03/22/2019 3:24 PM CDT Temperature 36.8 C (98.3 F) 03/22/2019 3:24 PM CDT Respiratory Rate 18 03/22/2019 3:24 PM CDT Oxygen Saturation - - Inhaled Oxygen Concentration - - Weight 91.6 kg (202 lb) 03/22/2019 3:24 PM CDT Height 149.9 cm (4' 11") 03/22/2019 3:24 PM CDT Body Mass Index 40.8 03/22/2019 3:24 PM CDT documented in this encounter Progress Notes Danielle Yarbrough MD - 03/22/2019 3:00 PM CDT Chief complaint: Chief Complaint Patient presents with ROUTINE VISIT HPI Denies vaginal bleeding or cramping. Histories OB History Para Term AB Living [...] file Gets together: Not on file Attends mandaeism service: Not on file Active member of [...] domestic or physical violence within the home Evangelical Preference: Religious No Cats in home Social History Substance and Sexual Activity Sexual Activity Yes Partners: Male control/protection: None Labs I have reviewed the patient's labs. Radiology No new radiology. Allergies Trixie has No Known Allergies. Medications Trixie has a current medication list which includes the following prescription(s ): venlafaxine xr and vits62/fa/om3/dha/epa. Review of Systems Constitutional: Negative for chills, fatigue and fever. HENT: Negative for congestion, rhinorrhea, sneezing and sore throat. Eyes: Negative for photophobia and visual disturbance. Respiratory: Negative for cough, chest tightness, shortness of breath and wheezing. Asthma worsening (see OB Summary) Cardiovascular: Negative for chest pain and palpitations. Gastrointestinal: Negative for abdominal distention, abdominal pain, constipation, diarrhea, nausea and vomiting. Genitourinary: Negative for dysuria, urgency, frequency, vaginal bleeding and vaginal discharge. Skin: Negative for rash. Neurological: Negative for syncope and headaches. Hematological: Does not bruise/bleed easily. BP 131/88 (BP Location: Left arm, Patient Position: Sitting, BP CUFF SIZE: Adult Medium) | Pulse 111 | Temp 36.8 C (98.3 F) (Oral) | Resp 18 | Ht 4 ' 11" (1.499 m) | Wt 202 lb (91.6 kg) | LMP 12/30/2018 | BMI 40.80 kg/m Pregravid BMI: 40.4 Physical Exam Vitals reviewed. Constitutional: She is oriented to person, place, and time. Her body habitus is obese. Cardiovascular: Regular rate and rhythm. Pulmonary/Chest: Breath sounds clear to auscultation. Normal inspiratory effort. Abdominal: Abdomen is soft. No tenderness present. No hernia palpated or inspected. Neuro/Psychiatric: She has a normal mood and affect. She is oriented to person, place, and time. Skin: Skin normal. No rash present. Assessment/Plan See OB Summary Return to clinic in 4 weeks. Reviewed patient instructions and provided printed copy. Activity restrictions: As tolerated at 11w6d This visit did not involve counseling and coordination that comprised more than 50% of the visit time. Danielle Yarbrough MD 03/23/2019 8:48 AM documented in this encounter Plan of Treatment Date Type Specialty Care Team Description 04/21/2019 Routine Obstetrics & Danielle Yarbrough MD Visit Gynecology [address] [place] [address] [place] [address] [phone] Health Maintenance Due Date Last Done Comments [...] Procedure Name Priority Date/Time Associated Diagnosis Comments POCT URINALYSIS W/O Routine 03/22/2019 11 weeks gestation of Results for this SPECIFIC GRAVITY procedure are in the results section. documented in this encounter Results POCT URINALYSIS W/O SPECIFIC GRAVITY (03/22/2019) POCT PH U N/A 5 - 8 mg/dl POCT U LEUK EST N/A Negative - Negative POCT U NIT N/A Negative - Negative POCT U PROT Negative Negative - Negative POCT U GLU Negative Negative - Negative POCT U KETONE N/A Negative - Negative POCT U BLD N/A Negative - Negative Specimen Urine - URINE, CLEAN CATCH documented in this encounter Visit Diagnoses Diagnosis High-risk in first trimester - Primary 11 weeks gestation of state, incidental Moderate persistent asthma, unspecified whether complicated documented in this encounter Insurance Payer Benefit Plan / Subscriber ID Effective Phone Address Type Group Dates [facility] xxxxxxxxx 2019-Nga [address] Medicaid HEALTH CHOICE - HEALTH [place] [id number] [facility] MEDICAID [place], [place] [id number] documented as of this encounter
--- OUTSIDE RECORDS SUMMARY | 2019-04-10 20:17 | XMS REPORT | Summary of Care ---
:1995 Author Organization [address] [address] Care Team Providers Name Role Phone Andreea Red Primary Care Provider Reason for Visit Reason Comments Nausea VOMITING DURING Hematuria Encounter Details Date Type Department Care Team Description 03/11/2019 Routine [facility] Britt, Sri, High-risk in first trimester (Primary Dx); Visit [facility] Nausea and vomiting, intractability of vomiting not specified, unspecified vomiting type; [address] Hematuria, unspecified type; [facility] Urinary frequency [address] [place] [address], [address] [address] [place], [place] [phone] [address] [phone] Allergies No Known Allergiesdocumented as of this [...] Sign Reading Time Taken Comments Blood Pressure 114/79 03/11/2019 3:49 PM CDT Pulse 87 03/11/2019 3:49 PM CDT Temperature 36.8 C (98.2 F) 03/11/2019 3:49 PM CDT Respiratory Rate 20 03/11/2019 3:49 PM CDT Oxygen Saturation - - Inhaled Oxygen Concentration - - Weight 90.7 kg (200 lb) 03/11/2019 3:49 PM CDT Height 149.9 cm (4' 11") 03/11/2019 3:49 PM CDT Body Mass Index 40.4 03/11/2019 3:49 PM CDT documented in this encounter Patient Instructions Patient InstructionsMelissa Bull D - 03/11/2019 3:30 PM CDT Understanding Urinary Tract Infections (UTIs) Most UTIs are caused by bacteria, although they may also be caused by viruses or fungi. Bacteria from the bowel are the most common source of infection.The infection may start because of any of the following: Sexual activity. During sex, bacteria can travel from the penis, vagina, or rectum into the urethra. Bacteria on the skinoutside the rectum may travel into the urethra. This is more common in women since the rectum and urethra are closer to each other than in men. Wiping from front to back after using the toilet and keeping the area clean can help prevent germs from getting to the urethra. Blockage of urine flow through the urinary tract. If urine sits too long, germs may start to growout of control. Parts of the urinary tract The infection canoccur in any part of the urinary tract. The kidneys collect and store urine. The ureters carry urine from the kidneys to the bladder. The bladder holds urine until you are ready to let it out. The urethra carries urine from the bladder out of the body. It is shorter in women, so bacteria can move throughit more easily.The urethra is longer in men, so a UTI is less likely to reach the bladder or kidneys in men. Date Last Reviewed: 07/20/201619997473-2049 [employer]. [address] [place] [address], [place] [address]. All rights reserved. This information is not intended as a substitute for professional medical care. Always follow your healthcare professional's instructions. Urinary Tract Infections in Women Urinary tract infections (UTIs) are most often caused bybacteria. These bacteria enter the urinarytract. The bacteria may come from outside the body. Or they may travel from the skin outside therectum or vagina into the urethra. Female anatomy makes it easy for bacteria from the bowelto enter awomans urinary tract, which is the most common source of UTI. This means women develop UTIs more often than men. Pain in or around the urinary tract is a common UTI symptom. But the only way to knowfor sure if you have a UTI for the healthcare provider to test your urine. The two tests that may bedone are the urinalysis and urine culture. Types of UTIs Cystitis. A bladder infection (cystitis) is the most common UTI in women. You may have urgent or frequent urination. You may also havepain, burning when you urinate, and bloody urine. Urethritis. This is an inflamed urethra, which is the tube that carries urine from the bladder tooutside the body. You may have lower stomach or back pain. You may also have urgent or frequent urination. Pyelonephritis. This is a kidney infection. If not treated, it can be serious and damage your kidneys. In severe cases, you may need to stay in the hospital. You may have a fever and lower back pain. Medicines to treat a UTI Most UTIs are treated with antibiotics. These kill the bacteria. The length of time you need to takethem depends on the type of infection. It may be as short as 3 days. If you have repeated UTIs, you may need a low-dose antibioticfor several months. Take antibiotics exactly as directed. Dont stop taking them until all of the medicine is gone. If you stop taking the antibiotic too soon, the infection may not go away. You may also develop a resistance to the antibiotic. This can make it much harder to treat. Lifestyle changes to treat and prevent UTIs The lifestyle changes below will help get rid of your UTI. They may also help prevent future UTIs. Drink plenty of fluids. This includes water, juice, or other caffeine-free drinks. Fluids help flush bacteria out of your body. Empty your bladder. Always empty your bladder when you feel the urge to urinate. And always urinate before going to sleep. Urine that stays in your bladder can lead to infection. Try to urinate before and after sex as well. Practice good personal hygiene. Wipe yourself from front to back after using the toilet. This helps keep bacteria from getting into the urethra. Use condoms during sex. These help prevent UTIs caused by sexually transmitted bacteria. Also don't use spermicides during sex. These can increase the risk for UTIs. Choose other forms of control instead. For women who tend to get UTIs after sex, a low-dose of a preventive antibiotic may be used. Be sure to discuss this option with your healthcare provider. Follow up with your healthcare provider as directed. He or she may test to make sure the infection has cleared. If needed, more treatment may be started. Date Last Reviewed: 07/20/201619993539-3649 [employer]. [address] [place] [address], [place] [address]. All rights reserved. This information is not intended as a substitute for professional medical care. Always follow your healthcare professional's instructions. Urine Culture Does this test have other names? Urine culture and sensitivity, urine C&S What is this test? Thistestchecks for bacteria in your urine that could be causing an infection in your urinary tract. The urinary tract includes the kidneys, bladder , ureters, and urethra. The results of a urine culture help your doctor find out what's causing your infection and determinethe best way to treat it. Almost 90% of urinary tract infections (UTIs) are caused by E. coli bacteria. Other types of bacteria, tuberculosis, and yeast infections can also cause a urinary tract infection. Why do I need this test? You may need this test if you have symptoms of a UTI. These include: Fever and chills Burning pain when urinating Pain in the back or lower belly Frequent need to urinate Cloudy or smelly urine What other tests might I have along with this test? Your doctormay also order a urinalysis, which is a urine test to check for white blood cells. He or she may also order ablood testto look for signs of infection in your blood. What do my test results mean? Many things may affect your lab test results. These include the method each lab uses to do the test.Even if your test results are different from the normal value, you may not have a problem. To learn what the results mean for you, talk with your healthcare provider. Urine culture results are given in colony forming units per milliliter (CFU/mL) . A negative result means you don't have an infection. A higher bacterial count may mean infection. How is this test done? This test requires a "clean-catch" urine sample. To collect this type of sample: Carefully wash and dry your hands before removing the cap of the specimen container. Clean the area around the opening of your urethra with an antiseptic pad. Start urinating directly into the toilet, then urinate into the sterile container to collect a sample. Fill the container as instructed. Do not let any part of the container touch your genitals or skin. Recap the container. Does this test pose any risks? This test poses no known risks. What might affect my test results? Taking antibiotics right before the test may affect your results. How do I get ready for this test? Drink enough water before the test so that you can urinate. Tell your doctor if you have taken antibiotic medicine recently. Be sure your doctor knows about all medicines, herbs, vitamins, and supplements you are taking. This includes medicines that don't need a prescription and any illicit drugs you may use. 2507-3608 [employer]. [address] [place] [address]. All rights reserved. This information is not intended as a substitute for professional medical care. Always follow your healthcare professional's instructions. Severe Morning Sickness (Hyperemesis Gravidarum) Nausea and vomiting are common during . It is often called morning sickness, but it can happen at any time of day. But severe nausea and vomiting that doesnt let up is not normal. Dehydration and weight loss can result. This can be dangerous for the mother and baby. Hyperemesis gravidarum ( HEG) is the medical term for severe nausea and vomiting during , and it results in weight loss. If you have it, your healthcare provider can take steps to keep you and your baby safe. Heor she can also help you find relief. What are the symptoms of severe morning sickness? Call your healthcare provider right away if you suspect that you have severe morning sickness. The symptoms include: Inability to keep down liquids Nausea that is severe and lasts beyond the first few months Inability to empty the bladder Urine that is dark and concentrated Fainting spells What causes severe morning sickness? Nausea and vomiting during are thought to be caused by an increase in certain hormone levels. It is not clear what causes severe morning sickness, but it may be more likely in women carrying twins or more. Your healthcare provider will do some tests to rule out certain health conditions thatmay lead to severe nausea and vomiting. Getting relief from morning sickness To help combat nausea, eat small amounts often. This helps prevent the stomach from being empty, which can make nausea worse. Choose dry foods such as crackers. Try sipping cold, clear drinks. And ask your healthcare provider about taking vitamin B-6 or ronaldo to help ease nausea. Your provider may recommend that you try vitamin B-6 and a medicine called doxylamine to relieve the nausea.In some cases, alternative treatments such as acupuncture are effective in helping managing nausea during . Treating severe morning sickness The focus of treatment forsevere morning sicknessis to relieve symptoms and prevent weight loss and dehydration. If you are dehydrated or losing weight, steps are needed to protect you and your baby. You will most likely be admitted to the hospital for at least a short time. There, you can be given IV fluids to rehydrate you. You may also be prescribed medicines that relieve nausea. In very severe cases, a longer hospitalization may be needed. IV nutrition or tube feeding will then be used. If this becomes necessary, your healthcare provider can tell you more. Recovery and follow-up With treatment,severe morning sicknesscan be managed. Follow up with your healthcare provider hillary sure you are keeping down fluids and gaining a healthy amount of weight. When to seek medical care Contact your healthcare provider right away if you have any of the following: Signs of dehydration, including extreme thirst, headache, little urine, very dark urine, or a dry, sticky mouth. Weight loss Dizziness or fainting Racing or pounding heart Blood in your vomit Date Last Reviewed: 11/18/201519990214-6455 [employer]. [address] [place] [address]. All rights reserved. This information is not intended as a substitute for professional medical care. Always follow your healthcare professional's instructions. Hyperemesis Gravidarum Hyperemesis gravidarum is a severe form of morning sickness that can affect some women during . It may develop around the 5th week and last until the 16th week of . In some women, it may last longer. Symptoms include severe nausea and vomiting. This can lead to problems such as as weight loss and dehydration. It is not clear what causes hyperemesis gravidarum. It may be due to rising hormone levels early in the . It can be a serious threat to mother and fetus, if symptoms are severe. Therefore, follow the advice below carefully. If symptoms are not controlled by home measures, a hospital stay may be needed. IV (intravenous) fluids and medicines may be given. Home care Diet ? Keep a log of the foods you eat and how they affect your symptoms. Avoid foods that trigger your symptoms. ? Eat frequent small meals throughout the day rather than three large meals. This can help keep the stomach from being empty, which can make nausea worse. ? Choose foods that are high in carbohydrates. Eating foods high in protein may also help. Limit greasy or spicy foods. ? Before getting out of bed in the morning, try eating crackers or dry toast. This may help settle your stomach. ? Drink cold, clear liquids. Drinking small amounts of liquids with electrolytes , such as sports drinks may help as well. Medicine ? If needed, your healthcare provider may prescribe certain medicines to help relieve nausea and vomiting. Vitamin B6 and ronaldo may also be advised. Dont try any qqth-joh-owbhnoa medicines or home remedies without talking to your provider first. Follow-up care Follow up with your healthcare provider, or as advised. When to seek medical advice Call your healthcare provider right away if any of these occur: Signs of dehydration (dry mouth, extreme thirst, dark urine or little urine output, dizziness, weakness, or fainting) Vomiting that wont stop Inability to keep down liquids Frequent diarrhea Weight loss or no weight gain over a 2-week period Severe constant pain in the lower right abdomen Fever of 100.4F (38C) or higher, or as directed by your provider Date Last Reviewed: 03/08/201519990066-7322 [employer]. [address] [place] [address]. All rights reserved. This information is not intended as a substitute for professional medical care. Always follow your healthcare professional's instructions. documented in this encounter Progress Notes Sri Britt MD - 03/11/2019 3:30 PM CDT Chief complaint: Chief Complaint Patient presents with Nausea VOMITING DURING Hematuria HPI Trixie Swann is a 23 year old female 10w5d IUP presents with nausea/vomiting x 2 days.She states that she is able to keep liquids down, but dry heaves. She has had a [employer] sandwich. Patient also notes some urinary frequency without dysuria. She noted no abdominal cramping, vaginal bleeding, or diarrhea. She has had a recent +chlamydia culture which was treated beginning 03/04/2019. Radha, who is present today, has not been treated. They have not had sex since she was treated. Histories OB History Para Term AB Living [...] file Gets together: Not on file Attends protestant service: Not on file Active member of [...] domestic or physical violence within the home Voodoo Preference: Oriental Orthodox No Cats in home Social History Substance and Sexual Activity Sexual Activity Yes Partners: Male control/protection: None Labs No new labs Radiology No new radiology. Allergies Trixie has No Known Allergies. Medications Trixie has a current medication list which includes the following prescription(s ): vits62/fa/om3/dha/epa. Review of Systems Constitutional: Negative. HENT: Negative. Eyes: Negative. Respiratory: Negative. Breasts: Negative. Cardiovascular: Negative. Gastrointestinal: Positive for nausea and vomiting. Genitourinary: Positive for frequency. Musculoskeletal: Negative. Skin: Negative. Neurological: Negative. Psychiatric/Behavioral: Negative. Endocrine: Endocrine negative BP 114/79 (BP Location: Left arm, Patient Position: Sitting, BP CUFF SIZE: Adult Medium) | Pulse 87 | Temp 36.8 C (98.2 F) | Resp 20 | Ht 4' 11" ( 1.499 m) | Wt 200 lb (90.7 kg) | LMP 12/30/2018 | BMI 40.40 kg/m Pregravid BMI: 40.4 Physical Exam Vitals reviewed. Constitutional: She appears well-developed. Cardiovascular: Regular rate and rhythm. No murmur auscultated. No peripheral edema present. Pulmonary/Chest: Breath sounds clear to auscultation. Normal inspiratory effort. Abdominal: Abdomen is soft. No mass palpated. No tenderness present. There is no hepatomegaly. Neuro/Psychiatric: She has a normal mood and affect. Skin: Skin normal. deferred. Assessment/Plan High-risk in first trimester Comment: Presents with nausea/vomiting Plan: Encourage PO fluid intake. Patient able to keep down all fluids and tolerating some regular food. Ketones negative today. Reports Urinary frequency and ? hematuria Comment: Urine with negative leukocytes/nitrites today. Plan: URINE CULTURE History of chlamydia positive culture Comment: Patient recently treated. Plan: LEDY on RTC. -Treating boyfriend with Azithromycin. No sex until weeks after treatment. Return to clinic in 2 weeks for regular visit. This visit did not involve counseling and coordination that comprised more than 50% of the visit time. Sri Britt MD Bull Caro - 03/11/2019 3:30 PM CDTPartner treatment for David Flody 1996 NKDA Azithromycin 1 gram 1 dose w/[facility] documented in this encounter Plan of Treatment Date Type Specialty Care Team Description 03/22/2019 Routine Obstetrics & Yarbrough, Danielle Dixon MD Visit Gynecology [address] [place] [address] [address] [place], [place] [phone] Health Maintenance Due Date Last Done Comments [...] Procedure Name Priority Date/Time Associated Diagnosis Comments URINE CULTURE Routine 03/11/2019 4:42 High-risk in Results for this PM CDT first trimester procedure are in Hematuria, unspecified the results type section. Urinary frequency POCT URINALYSIS W/O Routine 03/11/2019 High-risk in Results for this SPECIFIC GRAVITY first trimester procedure are in Nausea and vomiting, the results intractability of section. vomiting not specified, unspecified vomiting type documented in this encounter Results URINE CULTURE (03/11/2019 4:42 PM CDT) URINE CULTURE 10,000 - 100,000 [facility] CFU/mL mixed aerobic SERVICES organisms - suggests endogenous microbial contamination Specimen Urine - URINE, CLEAN CATCH Performing Organization Address City/State/Zipcode Phone Number [facility] CLIA: [id number], [address] [place] [address] [facility] POCT URINALYSIS W/O SPECIFIC GRAVITY (03/11/2019) POCT PH U 7 5 - 8 mg/dl POCT U LEUK EST neg Negative - Negative POCT U NIT neg Negative - Negative POCT U PROT neg Negative - Negative POCT U GLU neg Negative - Negative POCT U KETONE neg Negative - Negative POCT U BLD 250 Negative - Negative Specimen Urine - URINE, CLEAN CATCH documented in this encounter Visit Diagnoses Diagnosis High-risk in first trimester - Primary Nausea and vomiting, intractability of vomiting not specified, unspecified vomiting type Hematuria, unspecified type Urinary frequency documented in this encounter Insurance Payer Benefit Plan / Subscriber ID Effective Phone Address Type Group [facility] xxxxxxxxx 2019-Nga [address] Medicaid HEALTH CHOICE - HEALTH CHOICE nt [id number] MANAGED MEDICAID [place], [place] MEDICAID [id number] documented as of this encounter
--- OUTSIDE RECORDS SUMMARY | 2019-04-10 20:17 | XMS REPORT | Summary of Care ---
:1995 Author Organization [facility] - [address] [address] Care Team Providers Name Role Phone Andreea Red Primary Care Provider Reason for Visit Reason Comments Other Encounter Details Date Type Department Care Team Description 03/15/2019 Telephone [facility] Women[facility] Sri Britt MD Other Healthcare- [address], [place] [address] [address] [place] [phone] Allergies No Known Allergiesdocumented as of this encounter (statuses as of 03/20/2019) Medications Medication Sig Dispensed Refills Start Date End Date Status Take by mouth. 0 Active vits62/FA/om3/dha/epa ( [employer]) documented as of this encounter (statuses as of 03/20/2019) Active Problems Problem Noted Date Obesity, Class III, BMI 40-49.9 (morbid obesity) 02/22/2019 Estimated Date of Delivery Comments Yes 10/06/2019 Based on last menstrual period of 12/30/2018 documented as of this encounter (statuses as of 03/20/2019) Social History Tobacco Use Types Packs/Day Years [...] & Yarbrough, Danielle Dixon MD Visit Gynecology [address] [place] [address] [address] [place], [place] [address] Health Maintenance Due Date Last Done Comments [...] Phone Address Type Group Dates CONTINUUM CONTINUUM [id number] 2016-Pres Agency [employer] ent [employer] xxxxxxxxx 2019-Nga [place] Medicaid HEALTH CHOICE - HEALTH CHOICE nt [id number] MANAGED MEDICAID [place], [place] MED[place] [id number] documented as of this encounter
--- OUTSIDE RECORDS SUMMARY | 2019-04-10 20:17 | XMS REPORT | Summary of Care ---
:1995 Author Organization [facility] Address [address] [place] [address] Care Team Providers Name Role Phone Andreea Red Primary Care Provider Reason for Visit Reason Comments Other Returning call Encounter Details Date Type Department Care Team Description 04/04/2019 Telephone [facility] Women's Yarbrough, Danielle Dixon MD Other (Returning call) Healthcare- [address] [place] [phone] Allergies No Known Allergiesdocumented as of this encounter (statuses as of 04/05/2019) Medications Medication Sig Dispensed Refills Start Date [...] as of this encounter (statuses as of 04/05/2019) Active Problems Problem Noted Date Obesity, Class III, BMI 40-49.9 (morbid obesity) 02/22/2019 Estimated Date of Delivery Comments Yes 10/06/2019 Based on last menstrual period of 12/30/2018 documented as of this encounter (statuses as of 04/05/2019) Social History Tobacco Use Types Packs/Day Years [...] Yarbrough, Danielle Dixon MD Visit Gynecology [address] [place] [address] [place] [address] Health Maintenance Due Date Last [...] Phone Address Type Group Dates CONTINUUM CONTINUUM 2016-Pres Agency GENERIC GENERIC ent [employer] xxxxxxxxx 2019-Prese [address] Medicaid HEALTH CHOICE - HEALTH CHOICE nt [id number] MANAGED MEDICAID [place], [place] MED[place] [id number] documented as of this encounter
--- OUTSIDE RECORDS SUMMARY | 2019-04-10 20:17 | XMS REPORT | Summary of Care ---
:1995 Author Organization [facility] Address [address] [place] [address] Care Team Providers Name Role Phone Andreea Red Primary Care Provider Reason for Visit Reason Comments Results Encounter Details Date Type Department Care Team Description 04/04/2019 Telephone [facility] Women's YarbroughDanielle MD Results Healthcare- [address], [address] [place] [address] [place] [id number] Allergies No Known Allergiesdocumented as of this encounter (statuses as of 04/04/2019) Medications Medication Sig Dispensed Refills Start Date [...] as of this encounter (statuses as of 04/04/2019) Active Problems Problem Noted Date Obesity, Class III, BMI 40-49.9 (morbid obesity) 02/22/2019 Estimated Date of Delivery Comments Yes 10/06/2019 Based on last menstrual period of 12/30/2018 documented as of this encounter (statuses as of 04/04/2019) Social History Tobacco Use Types Packs/Day Years [...] & Yarbrough, Danielle Dixon MD Visit Gynecology [address] [place] [address] [place] [address] Health Maintenance Due Date Last [...] Phone Address Type Group Dates CONTINUUM CONTINUUM [id number] 2016-Pres Agency GENERIC GENERIC ent COMMUNITY COMMUNITY xxxxxxxxx 2019-Prese [address] Medicaid HEALTH CHOICE - HEALTH CHOICE nt [id number] MANAGED MEDICAID [place], [place] MEDICAID [id number] documented as of this encounter
--- OUTSIDE RECORDS SUMMARY | 2019-04-10 20:17 | XMS REPORT | Summary of Care ---
:1995 Author Organization [facility] Address [address] [place] [address] Care Team Providers Name Role Phone Andreea Red Primary Care Provider Encounter Details Date Type Department Care Team Description 03/22/2019 Letter (Out) [facility] Women's Yarbrough, Danielle Dixon MD [facility]- [address] [facility], [address] [place] [address] [place] [address] [phone] Allergies No Known Allergiesdocumented as of this encounter (statuses as of 03/22/2019) Medications Medication Sig Dispensed Refills Start Date End Date Status Take by mouth. 0 Active vits62/FA/om3/dha/epa ( GUMMY ORAL) venlafaxine XR 150 mg 24 TK ONE C PO D 0 02/16/2019 Active hr capsule documented as of this encounter (statuses as of 03/22/2019) Active Problems Problem Noted Date Obesity, Class III, BMI 40-49.9 (morbid obesity) 02/22/2019 Estimated Date of Delivery Comments Yes 10/06/2019 Based on last menstrual period of 12/30/2018 documented as of this encounter (statuses as of 03/22/2019) Social History Tobacco Use Types Packs/Day Years [...] & Yarbrough, Danielle Dixon MD Visit Gynecology [address] [place] [address] [place] [address] [phone] Health Maintenance Due Date Last Done Comments [...] Phone Address Type Group Dates CONTINUUM CONTINUUM [id number] 2016-Pres Agency GENERIC GENERIC ent COMMUNITY COMMUNITY xxxxxxxxx 2019-Nga [address] [place] Medicaid HEALTH CHOICE - HEALTH CHOICE nt [id number] MANAGED MEDICAID [place], [place] MEDICAID [id number] documented as of this encounter
--- OUTSIDE RECORDS SUMMARY | 2019-04-10 20:17 | XMS REPORT | Summary of Care ---
:1995 Author Organization [facility] Address [address] [place] [address] Care Team Providers Name Role Phone Andreea Red Primary Care Provider Reason for Visit Reason Comments Sore Throat Fever tmax 102.0 Congestion Body Aches x this AM Encounter Details Date Type Department Care Team Description 03/26/2019 Urgent Care [facility] Unknown, Attending Viral illness (Primary Dx); Urgent Care Marcial Coker MD [address] [id number] Carotidynia; [address], Vomiting of ; [address] Fever in adult; [place], [place] Body aches; [phone] 12 weeks gestation of [phone] Allergies No Known Allergiesdocumented as of this encounter (statuses as of 03/27/2019) Medications Medication Sig Dispensed Refills Start Date [...] as of this encounter (statuses as of 03/27/2019) Active Problems Problem Noted Date Obesity, Class III, BMI 40-49.9 (morbid obesity) 02/22/2019 Estimated Date of Delivery Comments Yes 10/06/2019 Based on last menstrual period of 12/30/2018 documented as of this encounter (statuses as of 03/27/2019) Social History Tobacco Use Types Packs/Day Years [...] Sign Reading Time Taken Comments Blood Pressure 111/77 03/26/2019 8:35 PM CDT Pulse 95 03/26/2019 8:35 PM CDT Temperature 37.2 C (98.9 F) 03/26/2019 8:35 PM CDT Respiratory Rate 18 03/26/2019 8:35 PM CDT Oxygen Saturation 98% 03/26/2019 8:35 PM CDT Inhaled Oxygen Concentration - - Weight 89.7 kg (197 lb 12.8 oz) 03/26/2019 8:35 PM CDT Height 149.9 cm (4' 11") 03/26/2019 8:35 PM CDT Body Mass Index 39.95 03/26/2019 8:35 PM CDT documented in this encounter Patient Instructions Patient InstructionsMarcial Coker MD - 03/26/2019 8:30 PM CDT1. Viral illness Viral Illness -- Consistent with current outbreak -- which one is causing carotidynia. No focus suspicious for a bacterial process. 2. Carotidynia - acetaminophen-codeine 300-30 mg tablet; 1/2 - 1 tab Every 4hrs as needed for pain or cough requiring narcotic Dispense: 10 tablet; Refill: 0 Pain Acetaminophen (Tylenol) 500mg take 2 tablets twice a day baseline and up to 4 times a day for pain. May add Codeine if narcotic necessary, Has a tylenol in it, to be counted in daily total. Do not drive or engage in hazardous activities for 4 hours after taking codeine. Carotidynia The tenderness in your neck is an irritation along the nerves that follow the carotid artery. Your carotid artery is not involved. This is not related to headache syndromes, arterititis, or several other carotid syndromes. It is not infection or inflammation, though it may improve with anti- inflammatory medicine. This carotidynia is due to a viral infection. Your throat may hurt, even to the point of being painful to swallow. You may feel the pain in the area of your ear when you swallow. It will resolve as you recover from the virus. Meanwhile, treating the pain will make you more comfortable while your body heals. While your carotidynia is caused by a virus, bacterial infections in the face, ears, and throat can aggravate it. Please be seen again if getting worse. 3. Vomiting of - metoclopramide HCl 10 mg tablet; 1 tab every 4hr as needed for nausea Dispense: 30 tablet; Refill: 0 Encourage fluids. Eat as desired. Body stores will meet nutritional needs for the duration of most illnesses. Any meals missed while ill will be made up when well again. Is all right to drink and vomit. More stays down than is vomited -- which no one believed until labeled water studies were done. Metoclopramide as needed for nausea. If near vomiting or want more rapid effect may bite and place under tongue. Does not taste good, but may be better than vomiting. 4. Fever in adult - POCT RAPID FLU A AND B TEST Negative 5. Body aches Pain as above 6. 12 weeks gestation of May your get better soon. See Dr. Red if follow up needed. documented in this encounter Progress Notes Marcial Coker MD - 03/26/2019 8:30 PM CDT Cc: Chief Complaint Patient presents with Sore Throat Fever tmax 102.0 Congestion Body Aches x this AM Trixie Swann is a 23 year old female. HPI Yesterday tired and cough. Slept well but hot. Today body aches, runny stuffy nose, cough, earache, and sore throat. Tx: DPH Medications Outpatient Medications Prior to Visit Medication Sig Dispense Refill venlafaxine XR 150 mg 24 hr capsule TK ONE C PO D 0 vits62/FA/om3/dha/epa ( GUMMY ORAL) Take by mouth. No facility-administered medications prior to visit. Review of Systems Constitutional: fever, chills Skin: Denies: Rash Allergy/Immunology: rhinorrhea Eyes: Denies: visual loss or blurred vision ENT: Earache, nasal congestion, sore throat Respiratory: cough Denies: dyspnea, Gastrointestinal: baseling nausea of , Denies: abdominal pain, vomiting, diarrhea Genitourinary: Denies: dysuria, urgency, frequency Musculoskeletal: achy lyn whole back Neuro: global headache, Denies:vision change, dizziness, lightheaded Past Medical History: No date: Acid reflux No date: Anemia No date: Anxiety No date: Asthma No date: Bacterial vaginosis Comment: History of No date: Depression No date: GERD (gastroesophageal reflux disease) Past Surgical History: No date: MYRINGOTOMY Comment: at age 4 Review of patient's family history indicates: Problem: Diabetes Relation: Mother Age of Onset: (Not Specified) Problem: Ovarian Cancer Relation: Other Age of Onset: 33 Problem: Arthritis Relation: NoFHx Age of Onset: (Not Specified) Problem: Asthma Relation: NoFHx Age of Onset: (Not Specified) Problem: defects Relation: NoFHx Age of Onset: (Not Specified) Problem: Breast Cancer Relation: NoFHx Age of Onset: (Not Specified) Problem: Colon Cancer Relation: NoFHx Age of Onset: (Not Specified) Problem: Uterine Cancer Relation: NoFHx Age of Onset: (Not Specified) Problem: Cancer Relation: NoFHx Age of Onset: (Not Specified) Problem: Depression Relation: NoFHx Age of Onset: (Not Specified) Problem: Genetic Relation: NoFHx Age of Onset: (Not Specified) Problem: Heart Relation: NoFHx Age of Onset: (Not Specified) Problem: High cholesterol Relation: NoFHx Age of Onset: (Not Specified) Problem: Hypertension Relation: NoFHx Age of Onset: (Not Specified) Problem: Mental retardation Relation: NoFHx Age of Onset: (Not Specified) Problem: Neurological Relation: NoFHx Age of Onset: (Not Specified) Problem: Osteoporosis Relation: NoFHx Age of Onset: (Not Specified) Problem: Other - see comments Relation: NoFHx Age of Onset: (Not Specified) Social History Socioeconomic History Marital status: Single [...] file Gets together: Not on file Attends uatsdin service: Not on file Active member of club or organization: Not on file Attends meetings of clubs or organizations: Not on file Relationship status: Not on file Intimate partner violence: Fear of current or ex partner: Not on file Emotionally abused: Not on file Physically abused: Not on file Forced sexual activity: Not on file Other Topics Concerns: Not on file Social History Narrative Denies domestic or physical violence within the home Yarsanism Preference: Anabaptism No Cats in home Vital Signs BP 111/77 | Pulse 95 | Temp 37.2 C (98.9 F) (Oral) | Resp 18 | Ht 4' 11 " (1.499 m) | Wt 197lb 12.8 oz (89.7 kg) | LMP 12/30/2018 | SpO2 98% | BMI 39.95 kg/m Physical Exam Head: Inspection normal. Eyes: PERRL, conjunctiva/sclera normal ENT: moist mucous membranes, palate normal to mid pink, pharynx normal, nose normal, Ears TMs clear Neck: Rt 1-2+ carotid tender, no masses or swelling Respiratory/Chest:strong sneezing at times, breath sounds normal, no wheezing Cardiovascular: regular rate and rhythm, heart sounds normal GI: projectile vomited several times after I performed quick strep swab; abdomen soft, non-tender, MS: Legs: non-tender Back: non-tender, no CVA tenderness Skin: no rash. Normal color and turgor. Neurologic: alert, speech normal, gait normal Psychiatric: Interactive, Mood normal Assessment/Plan 1. Viral illness Viral Illness -- Consistent with current outbreak -- which one is causing carotidynia. [several viruses in the community right now including flu.] No focus suspicious for a bacterial process. 2. Carotidynia She is miserable. I do not like codeine in and when she asked I assured her that yes codeine does cross to the baby, but she is not going to take enough to worry about. //////////////////////////////////////////////////////////////////////////////// /////////////////////////////////////////////////// - acetaminophen-codeine 300-30 mg tablet; 1/2 - 1 tab Every 4hrs as needed for pain or cough requiring narcotic Dispense: 10 tablet; Refill: 0 Pain Acetaminophen (Tylenol) 500mg take 2 tablets twice a day baseline and up to 4 times a day for pain. May add Codeine if narcotic necessary, Has a tylenol in it, to be counted in daily total. Do not drive or engage in hazardous activities for 4 hours after taking codeine. Carotidynia The tenderness in your neck is an irritation along the nerves that follow the carotid artery. Your carotid artery is not involved. This is not related to headache syndromes, arterititis, or several other carotid syndromes. It is not infection or inflammation, though it may improve with anti- inflammatory medicine. This carotidynia is due to a viral infection. Your throat may hurt, even to the point of being painful to swallow. You may feel the pain in the area of your ear when you swallow. It will resolve as you recover from the virus. Meanwhile, treating the pain will make you more comfortable while your body heals. While your carotidynia is caused by a virus, bacterial infections in the face, ears, and throat can aggravate it. Please be seen again if getting worse. 3. Vomiting of Actually vomiting from virus during . Projectile vomiting repeatedly after quick touch strep that I performed. //////////////////////////////////////////////////////////////////////////////// /////////////////////////////////////////////////// - metoclopramide HCl 10 mg tablet; 1 tab every 4hr as needed for nausea Dispense: 30 tablet; Refill: 0 Encourage fluids. Eat as desired. Body stores will meet nutritional needs for the duration of most illnesses. Any meals missed while ill will be made up when well again. Is all right to drink and vomit. More stays down than is vomited -- which no one believed until labeled water studies were done. Metoclopramide as needed for nausea. If near vomiting or want more rapid effect may bite and place under tongue. Does not taste good, but may be better than vomiting. 4. Fever in adult - POCT RAPID FLU A AND B TEST Negative 5. Body aches Pain as above 6. 12 weeks gestation of May your get better soon. See Dr. Red if follow up needed. Gali English MA - 03/26/2019 8:30 PM CDT Trixie Swann is a 23 year old female Chief Complaint Patient presents with Sore Throat Fever tmax 102.0 Congestion Body Aches x this AM Vitals: 03/26/19 2035 BP: 111/77 Pulse: 95 Resp: 18 Temp: 37.2 C (98.9 F) TempSrc: Oral SpO2: 98% Weight: 197 lb 12.8 oz (89.7 kg) Height: 4' 11" (1.499 m) [id number] - [place], [place] - [address] [facility] [address] Patient AAOx4 and in no acute distress. All Vitals taken, allergies and all medications reviewed, fall risk assessed. Pain level 5. documented in this encounter Plan of Treatment Date Type Specialty Care Team Description 04/21/2019 Routine Obstetrics & Yarbrough, Danielle Dixon MD Visit Gynecology [address] [place] [address] [address]. [place], [place] [phone] Health Maintenance Due Date Last Done Comments [...] Name Priority Date/Time Associated Diagnosis Comments POCT RAPID FLU A Routine 03/26/2019 8:50 PM Fever in adult Results for this AND B TEST CDT Body aches procedure are in the results section. documented in this encounter Results POCT RAPID FLU A AND B TEST (03/26/2019 8:50 PM CDT) POCT INFLUENZA A neg Negative - Negative POCT INFLUENZA B neg Negative - Negative Specimen Swab Narrative Performed At accurate development and interpretation of all internal controls documented in this encounter Visit Diagnoses Diagnosis Viral illness - Primary Unspecified viral infection, in conditions classified elsewhere and of unspecified site Carotidynia Carotid sinus syndrome Vomiting of Unspecified vomiting of , unspecified as to episode of care Fever in adult Body aches Generalized pain 12 weeks gestation of state, incidental documented in this encounter Insurance Payer Benefit Plan / Subscriber ID Effective Phone Address Type Group Dates COMMUNITY COMMUNITY xxxxxxxxx 2019-Nga [place] Medicaid HEALTH CHOICE - HEALTH CHOICE [id number] MANAGED MEDICAID [place], [place] MEDICAID [phone] documented as of this encounter
--- OUTSIDE RECORDS SUMMARY | 2019-04-10 20:18 | XMS REPORT | Summary of Care ---
:1995 Author Organization [facility] - Health Address [address] [place] [address] Care Team Providers Name Role Phone Andreea Red Primary Care Provider Encounter Details Date Type Department Care Team Description 03/25/2019 Orders Only [facility] Doctor Unassigned, No [address] [facility] [place] [address] [address] [facility] [phone] Allergies No Known Allergiesdocumented as of this encounter (statuses as of 04/08/2019) Medications Medication Sig Dispensed Refills Start Date End Date Status Take by mouth. 0 Active vits62/FA/om3/dha/epa ( GUMMY ORAL) venlafaxine XR 150 mg 24 TK ONE C PO D 0 02/16/2019 Active hr capsule documented as of this encounter (statuses as of 04/08/2019) Active Problems Problem Noted Date Obesity, Class III, BMI 40-49.9 (morbid obesity) 02/22/2019 Estimated Date of Delivery Comments Yes 10/06/2019 Based on last menstrual period of 12/30/2018 documented as of this encounter (statuses as of 04/08/2019) Social History Tobacco Use Types Packs/Day Years [...] & Yarbrough, Danielle Dixon MD Visit Gynecology [address] [place] [address] [place] [address] Health Maintenance Due Date Last [...] Procedure Name Priority Date/Time Associated Diagnosis Comments SCANNED LAB RESULTS Routine 03/25/2019 12:01 AM CDT documented in this encounter Results SCANNED LAB RESULTS (03/25/2019 12:01 AM CDT) Specimen Performing Organization Address City/State/Zipcode Phone Number HIM documented in this encounter Insurance Payer Benefit Plan / Subscriber ID Effective Phone Address Type Group Dates CONTINUUM CONTINUUM [id number] 2016-Pres Agency GENERIC GENERIC ent COMMUNITY COMMUNITY xxxxxxxxx 2019-Prese [address] Medicaid HEALTH CHOICE - HEALTH CHOICE nt [id number] MANAGED MEDICAID [place], [place] MEDICAID [phone] documented as of this encounter
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
[2019-04-10 22:43] VITALS: O2SAT 98
[2019-04-10 22:45] VITALS: BP 115/76; TEMP 97.5
== END 2019-04-10 22:07 | disposition home or self-care (01) ==
LOC: ER 20:12
DX: O26.892 Other specified pregnancy related conditions, second trimester (principal); Z3A.15 15 weeks gestation of pregnancy; V49.49XA Driver injured in collision with other motor vehicles in traffic accident, initial encounter
CPT/HCPCS: 76815; 99283